=== PATIENT | female | born 1950 | race American Indian/Alaskan Native ===

== ENCOUNTER 2017-01-11 08:14 | Outpatient (CLI) | payer MEDICARE ==
--- NOTE | 2017-01-13 10:23 | Nuclear Medicine Report ---
Nuclear medicine three-phase bone scan History: Left knee pain status post left knee joint replacement in 2014 after traumatic injury. Findings: On the initial flow study, there is no evidence of increased flow to the left knee. On the second phase, there is minimal increased activity surrounding the prosthesis. The delayed images demonstrate mild generalized increased activity with no focal increased activity at the bone/prosthesis interface. Impression: No scintigraphic evidence of infection or loosening of the prosthesis.
== END 2017-01-11 08:15 | disposition home or self-care (01) ==
LOC: NM 08:14
PROVIDERS: ATTEND Orthopaedic Surgery
DX: M25.562 Pain in left knee (principal); S87.02XD Crushing injury of left knee, subsequent encounter; Z96.652 Presence of left artificial knee joint; X58.XXXD Exposure to other specified factors, subsequent encounter
CPT/HCPCS: 36415; 78315; 85652; 86140; A9503

== ENCOUNTER 2017-09-02 07:32 | Outpatient (CLI) | payer MEDICARE ==
[2017-09-02 08:08] LABS: Hematocrit 44.9 % (30.3-42.9); Hemoglobin 14.8 gm/dl (10.1-14.3); Mean Corpuscular HGB Conc 33 % (30-34); Mean Corpuscular Hemoglobin 32 pg (28-32); Mean Corpuscular Volume 97 fl (79-97); Platelet Count 360 K/mm3 (140-440); Red Blood Count 4.65 M/mm3 (3.65-5.03); Red Cell Distribution Width 14.9 % (13.2-15.2); White Blood Count 7.6 K/mm3 (4.5-11.0)
[2017-09-02 08:17] LABS: Bilirubin,Urine Negative (Negative)
[2017-09-02 08:18] LABS: Blood,Urine Negative (Negative); Ketones,Urine Negative (Negative)
[2017-09-02 08:19] LABS: Leukocyte Esterase,Urine Negative (Negative); Nitrite,Urine Negative (Negative); Urobilinogen,Urine < 2.0 mg/dL (<2.0)
[2017-09-02 08:21] LABS: Alanine Aminotransferase 7 units/L (7-56); Albumin 3.6 g/dL (3.9-5); Albumin/Globulin Ratio 1.1 %; Alkaline Phosphatase 115 units/L (35-129); Anion Gap 15 mmol/L; BUN/Creatinine Ratio 19; Blood Urea Nitrogen 17 mg/dL (7-17); Carbon Dioxide 28 mmol/L (22-30); Chloride 101.4 mmol/L (98-107); Glucose 87 mg/dL (65-100); Potassium 3.4 mmol/L (3.6-5.0); Sodium 141 mmol/L (137-145); Total Protein 6.9 g/dL (6.3-8.2)
--- NOTE | 2017-09-02 08:31 | XRay Report ---
ROUTINE CHEST, TWO VIEWS: HISTORY: Preoperative evaluation. Compared to 05/03/16. Normal heart size and pulmonary vascularity. The lungs are clear. No pleural effusion or pneumothorax. The aorta is ectatic and contains mild calcifications. The bony thorax is grossly intact. No significant change since the previous exam. IMPRESSION: No acute cardiopulmonary process.
== END 2017-09-02 07:33 | disposition home or self-care (01) ==
LOC: XRAY 07:32
PROVIDERS: ATTEND Internal Medicine
DX: Z01.818 Encounter for other preprocedural examination (principal); I70.0 Atherosclerosis of aorta; I77.819 Aortic ectasia, unspecified site; I10 Essential (primary) hypertension; I25.10 Atherosclerotic heart disease of native coronary artery without angina pectoris; J44.9 Chronic obstructive pulmonary disease, unspecified; D64.9 Anemia, unspecified
CPT/HCPCS: 36415; 71020; 80053; 81001; 85027

== ENCOUNTER 2019-09-19 09:30 | Emergency (ER) | payer MEDICARE ==
[2019-09-19 10:16] LABS: Basophils # (Auto) 0.1 K/mm3 (0.0-0.1); Basophils % (Auto) 0.7 % (0.0-1.8); Eosinophils # (Auto) 0.2 K/mm3 (0.0-0.4); Hematocrit 43.3 % (30.3-42.9); Hemoglobin 14.6 gm/dl (10.1-14.3); Lymphocytes # (Auto) 2.9 K/mm3 (1.2-5.4); Lymphocytes % (Auto) 37.9 % (13.4-35.0); Mean Corpuscular HGB Conc 34 % (30-34); Mean Corpuscular Volume 95 fl (79-97); Monocytes # (Auto) 0.5 K/mm3 (0.0-0.8); Monocytes % (Auto) 6.7 % (0.0-7.3); Platelet Count 354 K/mm3 (140-440); Red Blood Count 4.58 M/mm3 (3.65-5.03); Red Cell Distribution Width 16.1 % (13.2-15.2)
[2019-09-19 10:45] LABS: Alanine Aminotransferase 11 units/L (7-56); Albumin 3.6 g/dL (3.9-5); BUN/Creatinine Ratio 22; Blood Urea Nitrogen 20 mg/dL (7-17); Calcium 9.4 mg/dL (8.4-10.2); Hemolysis Index 9
[2019-09-19 10:46] LABS: Bilirubin,Urine NEG (Negative); Blood,Urine NEG (Negative); Color,Urine Amber (Yellow); Mucus,Urine 1+ /HPF
[2019-09-19] MEDS ORDERED: SODIUM CHLORIDE 0.9% 1000 ML 1,000 ML IV ONE (13:43)
[2019-09-19] MEDS ORDERED: HYDROmorphone 1 MG/1 ML INJ IV ONE (13:43)
[2019-09-19] MEDS ORDERED: ONDANSETRON 4 MG/2 ML INJ IV ONE (13:43)
--- NOTE | 2019-09-19 14:45 | Emergency Department Report ---
ED General Adult HPI - General Chief complaint: Abdominal Pain Stated complaint: DOC SENT Time Seen by Provider: 09/19/19 13:20 Source: patient Mode of arrival: Ambulatory Limitations: No Limitations - History of Present Illness Initial comments: The patient presents to the emergency department with a chief complaint of lower abdominal pain that started 2 nights ago. Patient states she has a history of colitis and last night the pain became so significant she went to see [facility] but left without being seen after waiting for approximately 8 hours per patient. Patient also complains of some nausea and vomiting but denies chest pain. -: Sudden Location: abdomen Radiation: non-radiation Severity scale (0 -10): 10 Quality: sharp Consistency: constant Improves with: none Worsens with: none Associated Symptoms: denies other symptoms Treatments Prior to Arrival: none - Related Data Home Medications Medication Instructions Recorded Confirmed Last Taken Amlodipine Besylate [Norvasc] 10 mg PO QDAY 09/19/19 09/19/19 Unknown Citalopram [celeXA] 40 mg PO QDAY 09/19/19 09/19/19 Unknown Clopidogrel [Plavix] 75 mg PO QDAY 09/19/19 09/19/19 Unknown Dexlansoprazole [Dexilant] 60 mg PO QDAY 09/19/19 09/19/19 Unknown Famotidine [Pepcid] 20 mg PO QDAY 09/19/19 09/19/19 Unknown Lisinopril/Hydrochlorothiazide 1 tab PO QDAY 09/19/19 09/19/19 Unknown [Zestoretic 20-12.5 mg] Omeprazole 40 mg PO QDAY 09/19/19 09/19/19 Unknown Ondansetron [Zofran Odt] 4 mg PO Q6HR 09/19/19 09/19/19 Unknown Pravastatin [Pravachol] 40 mg PO QHS 09/19/19 09/19/19 Unknown oxyCODONE /ACETAMINOPHEN [Percocet 1 tab PO Q12HR PRN 09/19/19 09/19/19 Unknown 5/325] Previous Rx's Medication Instructions Recorded Last Taken Type Dicyclomine [Bentyl] 10 mg PO QID PRN #20 capsule 09/19/19 Unknown Rx Ondansetron [Zofran Odt] 4 mg PO Q4HR PRN #20 tab.rapdis 09/19/19 Unknown Rx Allergies Allergy/AdvReac Type Severity Reaction Status Date / Time gabapentin Allergy Unknown Verified 09/19/19 13:16 ibuprofen Allergy Unknown Verified 09/19/19 13:16 meloxicam Allergy Unknown Verified 09/19/19 13:16 morphine Allergy Unknown Verified 09/19/19 13:16 sertraline [From Zoloft] Allergy Unknown Verified 09/19/19 13:16 tramadol Allergy Unknown Verified 09/19/19 13:16 ED Review of Systems ROS: Stated complaint: DOC SENT Other details as noted in HPI Comment: All other systems reviewed and negative Constitutional: denies: chills, fever Eyes: denies: eye pain, eye discharge, vision change ENT: denies: ear pain, throat pain Respiratory: denies: cough, shortness of breath, wheezing Cardiovascular: denies: chest pain, palpitations Endocrine: no symptoms reported Gastrointestinal: abdominal pain. denies: nausea, diarrhea Genitourinary: denies: urgency, dysuria, discharge Musculoskeletal: denies: back pain, joint swelling, arthralgia Skin: denies: rash, lesions Neurological: denies: headache, weakness, paresthesias Psychiatric: denies: anxiety, depression Hematological/Lymphatic: denies: easy bleeding, easy bruising ED Past Medical Hx - Past Medical History Hx Hypertension: Yes (SINCE 1973) Hx CVA: Yes Hx Heart Attack/AMI: No Hx GERD: Yes Hx Liver Disease: No Hx Renal Disease: Yes (gout) Hx Sickle Cell Disease: No Hx Arthritis: Yes Hx Headaches / Migraines: Yes (MIGRAINES) Hx Psychiatric Treatment: Yes (anxiety, depression) Hx COPD: Yes Hx Tuberculosis: Yes (POSITIVE SKIN TEST, NEG CXR) Hx HIV: No Additional medical history: colitis. aortic aneurysm - Surgical History Additional Surgical History: hemorrhoidectomy - Social History Smoking Status: Current Every Day Smoker - Medications Home Medications: Home Medications Medication Instructions Recorded Confirmed Last Taken Type Amlodipine Besylate [Norvasc] 10 mg PO QDAY 09/19/19 09/19/19 Unknown History Citalopram [celeXA] 40 mg PO QDAY 09/19/19 09/19/19 Unknown History Clopidogrel [Plavix] 75 mg PO QDAY 09/19/19 09/19/19 Unknown History Dexlansoprazole [Dexilant] 60 mg PO QDAY 09/19/19 09/19/19 Unknown History Dicyclomine [Bentyl] 10 mg PO QID PRN #20 capsule 09/19/19 Unknown Rx Famotidine [Pepcid] 20 mg PO QDAY 09/19/19 09/19/19 Unknown History Lisinopril/Hydrochlorothiazide 1 tab PO QDAY 09/19/19 09/19/19 Unknown History [Zestoretic 20-12.5 mg] Omeprazole 40 mg PO QDAY 09/19/19 09/19/19 Unknown History Ondansetron [Zofran Odt] 4 mg PO Q4HR PRN #20 tab.rapdis 09/19/19 Unknown Rx Ondansetron [Zofran Odt] 4 mg PO Q6HR 09/19/19 09/19/19 Unknown History Pravastatin [Pravachol] 40 mg PO QHS 09/19/19 09/19/19 Unknown History oxyCODONE /ACETAMINOPHEN [Percocet 1 tab PO Q12HR PRN 09/19/19 09/19/19 Unknown History 5/325] ED Physical Exam - General Limitations: No Limitations General appearance: alert, in no apparent distress - Head Head exam: Present: atraumatic, normocephalic - Eye Eye exam: Present: normal appearance, PERRL, EOMI - ENT ENT exam: Present: mucous membranes dry - Neck Neck exam: Present: normal inspection - Respiratory Respiratory exam: Present: normal lung sounds bilaterally. Absent: respiratory distress - Cardiovascular Cardiovascular Exam: Present: regular rate, normal rhythm. Absent: systolic murmur, diastolic murmur, rubs, gallop - GI/Abdominal GI/Abdominal exam: Present: soft, tenderness (TTP LLQ), normal bowel sounds. Absent: distended - Extremities Exam Extremities exam: Present: normal inspection - Back Exam Back exam: Present: normal inspection - Neurological Exam Neurological exam: Present: alert, oriented X3, CN II-XII intact. Absent: motor sensory deficit - Psychiatric Psychiatric exam: Present: normal affect, normal mood - Skin Skin exam: Present: warm, dry, intact, normal color. Absent: rash ED Course Vital Signs 09/19/19 09/19/19 09/19/19 09:36 13:18 13:20 Temperature 98.9 F 98.3 F Pulse Rate 72 72 Respiratory 18 22 19 Rate Blood Pressure 131/75 Blood Pressure 137/85 [Left] O2 Sat by Pulse 97 100 100 Oximetry ED Medical Decision Making - Lab Data Result diagrams: 09/19/19 09:41 09/19/19 09:45 Lab Results 09/19/19 09/19/19 09/19/19 Range/Units 09:41 09:45 13:46 WBC 7.6 (4.5-11.0) K/mm3 RBC 4.58 (3.65-5.03) M/mm3 Hgb 14.6 H (10.1-14.3) gm/dl Hct 43.3 H (30.3-42.9) % MCV 95 (79-97) fl MCH 32 (28-32) pg MCHC 34 (30-34) % RDW 16.1 H (13.2-15.2) % Plt Count 354 (140-440) K/mm3 Lymph % (Auto) 37.9 H (13.4-35.0) % [place] % (Auto) 6.7 (0.0-7.3) % Eos % (Auto) 3.0 (0.0-4.3) % Baso % (Auto) 0.7 (0.0-1.8) % Lymph # 2.9 (1.2-5.4) K/mm3 [place] # 0.5 (0.0-0.8) K/mm3 Eos # 0.2 (0.0-0.4) K/mm3 Baso # 0.1 (0.0-0.1) K/mm3 Seg Neutrophils % 51.7 (40.0-70.0) % Seg Neutrophils # 3.9 (1.8-7.7) K/mm3 Sodium 145 (137-145) mmol/L Potassium 3.7 (3.6-5.0) mmol/L Chloride 112.1 H (98-107) mmol/L Carbon Dioxide 19 L (22-30) mmol/L Anion Gap 18 mmol/L BUN 20 H (7-17) mg/dL Creatinine 0.9 (0.7-1.2) mg/dL Estimated GFR > 60 ml/min BUN/Creatinine Ratio 22 % Glucose 133 H (65-100) mg/dL Calcium 9.4 (8.4-10.2) mg/dL Total Bilirubin 0.50 (0.1-1.2) mg/dL AST 13 (5-40) units/L ALT 11 (7-56) units/L Alkaline Phosphatase 69 (35-129) units/L Total Protein 7.1 (6.3-8.2) g/dL Albumin 3.6 L (3.9-5) g/dL Albumin/Globulin Ratio 1.0 % Lipase 97 H (13-60) units/L Urine Color (Yellow) Urine Turbidity (Clear) Urine pH (5.0-7.0) Ur Specific [place] (1.003-1.030) Urine Protein (Negative) mg/dL Urine Glucose (UA) (Negative) mg/dL Urine Ketones (Negative) mg/dL Urine Blood (Negative) Urine Nitrite (Negative) Urine Bilirubin (Negative) Urine Urobilinogen (<2.0) mg/dL Ur Leukocyte Esterase (Negative) Urine WBC (Auto) (0.0-6.0) /HPF Urine RBC (Auto) (0.0-6.0) /HPF U Epithel Cells (Auto) (0-13.0) /HPF Urine Mucus /HPF 09/19/19 Range/Units Unknown WBC (4.5-11.0) K/mm3 RBC (3.65-5.03) M/mm3 Hgb (10.1-14.3) gm/dl Hct (30.3-42.9) % MCV (79-97) fl MCH (28-32) pg MCHC (30-34) % RDW (13.2-15.2) % Plt Count (140-440) K/mm3 Lymph % (Auto) (13.4-35.0) % [place] % (Auto) (0.0-7.3) % Eos % (Auto) (0.0-4.3) % Baso % (Auto) (0.0-1.8) % Lymph # (1.2-5.4) K/mm3 [place] # (0.0-0.8) K/mm3 Eos # (0.0-0.4) K/mm3 Baso # (0.0-0.1) K/mm3 Seg Neutrophils % (40.0-70.0) % Seg Neutrophils # (1.8-7.7) K/mm3 Sodium (137-145) mmol/L Potassium (3.6-5.0) mmol/L Chloride (98-107) mmol/L Carbon Dioxide (22-30) mmol/L Anion Gap mmol/L BUN (7-17) mg/dL Creatinine (0.7-1.2) mg/dL Estimated GFR ml/min BUN/Creatinine Ratio % Glucose (65-100) mg/dL Calcium (8.4-10.2) mg/dL Total Bilirubin (0.1-1.2) mg/dL AST (5-40) units/L ALT (7-56) units/L Alkaline Phosphatase (35-129) units/L Total Protein (6.3-8.2) g/dL Albumin (3.9-5) g/dL Albumin/Globulin Ratio % Lipase (13-60) units/L Urine Color [place] (Yellow) Urine Turbidity Clear (Clear) Urine pH 6.0 (5.0-7.0) Ur Specific [place] 1.027 (1.003-1.030) Urine Protein 30 mg/dl (Negative) mg/dL Urine Glucose (UA) Neg (Negative) mg/dL Urine Ketones Neg (Negative) mg/dL Urine Blood Neg (Negative) Urine Nitrite Neg (Negative) Urine Bilirubin Neg (Negative) Urine Urobilinogen 4.0 (<2.0) mg/dL Ur Leukocyte Esterase Neg (Negative) Urine WBC (Auto) 3.0 (0.0-6.0) /HPF Urine RBC (Auto) 1.0 (0.0-6.0) /HPF U Epithel Cells (Auto) 6.0 (0-13.0) /HPF Urine Mucus 1+ /HPF - Radiology Data Radiology results: report reviewed - Medical Decision Making Patient before me that the week of she had an EGD done and a colonoscopy by Dr. Aldrich with only 2 polyps being found. Discussed CT results with the patient So contacted the patient's physician was Dr. Carson the patient was discussed in detail including her CT imaging today Critical care attestation.: If time is entered above; I have spent that time in minutes in the direct care of this critically ill patient, excluding procedure time. ED Disposition Clinical Impression: Abdominal pain, Nausea & vomiting Disposition: TO HOME OR SELFCARE Is pt being admited?: No Does the pt Need Aspirin: No Condition: Stable Instructions: Acute Nausea and Vomiting (ED), Abdominal Pain (ED) Additional Instructions: Return if worse Prescriptions: Dicyclomine [Bentyl] 10 mg PO QID PRN #20 capsule PRN Reason: pain Ondansetron [Zofran Odt] 4 mg PO Q4HR PRN #20 tab.rapdis PRN Reason: Nausea Referrals: KEIRY CARSON MD [Primary Care Provider] - 3-5 Days Time of Disposition: 17:10
--- NOTE | 2019-09-19 15:32 | Cat Scan Report ---
CT ABDOMEN AND PELVIS WITH CONTRAST INDICATION: Left lower quadrant abdominal pain for 2 weeks with weakness. COMPARISON: CT abdomen and pelvis with contrast from 11/05/2014. TECHNIQUE: Axial, coronal and sagittal CT imaging of the abdomen and pelvis was performed after inje ction of 100 mL Omnipaque [address] scans at this location are performed using CT dose re duction for ALARA by means of automated exposure control. FINDINGS: LOWER CHEST: There is bibasilar atelectasis. The heart is mildly enlarged without a significant peric ardial effusion. The thoracic aorta is ectatic with mild to moderate atherosclerosis. LIVER: No significant abnormality. BILIARY: No significant abnormality. PANCREAS: No significant abnormality. SPLEEN: No significant abnormality. ADRENALS: No significant abnormality. KIDNEYS AND URETERS: There is age-appropriate bilateral renal cortical thinning. A simple appearing c yst along the right lower renal pole measures 1.5 cm. No additional significant abnormality. GI TRACT: There is mild thickening of the stomach, which may be related to underdistention. No additi onal significant abnormality of the stomach is seen. The small bowel and colon are unremarkable. The appendix is unremarkable. PERITONEUM: No free fluid. No free air. No fluid collection. LYMPH NODES: No significant adenopathy. VASCULATURE: The abdominal aorta is ectatic and mildly dilated infrarenally, measuring 3.3 x 3.0 cm. There is diffuse atherosclerosis. The visualized branches of the aorta are patent. URINARY BLADDER: No significant abnormality. REPRODUCTIVE ORGANS: No significant abnormality. ADDITIONAL FINDINGS: None. SKELETAL SYSTEM: No acute abnormality is seen. There are degenerative changes throughout the spine wi th prior multilevel lumbar laminectomies. Mild degenerative changes are also seen along the pelvis. IMPRESSION: 1. Mild thickening versus under distention of the stomach without an additional acute gastric abnorma lity or significant surrounding inflammation. 2. No other acute abnormality of the abdomen or pelvis is seen to explain the patient's pain. 3. Additional findings as above. Signer Name: Raymond Mcqueen MD Signed: 09/19/2019 3:28 PM Workstation Name: [id number]
[2019-09-19 18:01] VITALS: BP 139/106
== END 2019-09-19 18:01 | disposition home or self-care (01) ==
LOC: ED 09:30
DX: R10.30 Lower abdominal pain, unspecified (principal); R11.2 Nausea with vomiting, unspecified; I10 Essential (primary) hypertension; K21.9 Gastro-esophageal reflux disease without esophagitis; M19.90 Unspecified osteoarthritis, unspecified site; G43.909 Migraine, unspecified, not intractable, without status migrainosus; F17.200 Nicotine dependence, unspecified, uncomplicated; J44.9 Chronic obstructive pulmonary disease, unspecified
CPT/HCPCS: 36415; 74177; 80053; 81001; 83690; 85025; 96361; 96374; 96375; 99284; J1170; J2405; J7030; Q9967

== ENCOUNTER 2020-04-11 21:18 | Emergency (ER) | payer MEDICARE ==
--- NOTE | 2020-04-11 23:30 | Cat Scan Report ---
CT HEAD WITHOUT CONTRAST INDICATION : Altered mental status. History of fall. TECHNIQUE: Axial, coronal and sagittal CT imaging was performed from the skull apex through the skul l base without contrast. All CT scans at this location are performed using CT dose reduction for ALA RA by means of automated exposure control. COMPARISON: None available. FINDINGS: PARENCHYMA: No mass, midline shift, hemorrhage, extraaxial collection or acute territorial infarctio n. There is generalized atrophy with areas of decreased attenuation along the periventricular white matter that may represent chronic microvascular ischemic changes. VENTRICLES: Mildly enlarged secondary to atrophy. No acute abnormality. SOFT TISSUES: No significant abnormality of the included soft tissues/orbits. BONES: No acute osseous abnormality. SINUSES: No significant abnormality. ADDITIONAL FINDINGS: Moderate generalized intracranial atherosclerosis. IMPRESSION: 1. No acute intracranial abnormality. 2. Additional chronic changes as above. Signer Name: Raymond Mcqueen MD Signed: 04/11/2020 11:26 PM Workstation Name: [id number]
--- NOTE | 2020-04-11 23:35 | XRay Report ---
PELVIS 2 VIEWS INDICATION / CLINICAL INFORMATION: Pelvic pain. COMPARISON: CT abdomen and pelvis with contrast from 09/19/2019. FINDINGS: BONES and JOINT(S): No acute fracture or subluxation. Mild arthritis of the hips with similar mild to moderate lumbar spondylosis. SOFT TISSUES: No acute abnormality. Stable atherosclerosis along the pelvis. ADDITIONAL FINDINGS: None. IMPRESSION: 1. No acute findings. 2. Additional findings as above are unchanged compared to the prior CT from 09/19/2019. Signer Name: Raymond Mcqueen MD Signed: 04/11/2020 11:31 PM Workstation Name: [id number]
--- NOTE | 2020-04-11 23:36 | XRay Report ---
CHEST 1 VIEW 04/11/2020 10:26 PM INDICATION / CLINICAL INFORMATION: cough. COMPARISON: 2 views of the chest from 09/02/2017. FINDINGS: SUPPORT DEVICES: None. HEART / MEDIASTINUM: Stable. LUNGS / PLEURA: No significant pulmonary or pleural abnormality. No pneumothorax. ADDITIONAL FINDINGS: No significant additional findings. IMPRESSION: 1. No acute abnormality of the chest. Signer Name: Raymond Mcqueen MD Signed: 04/11/2020 11:32 PM Workstation Name: [id number]
[2020-04-12 00:18] LABS: Alanine Aminotransferase 17 units/L (7-56); Albumin 3.6 g/dL (3.9-5); BUN/Creatinine Ratio 18; Blood Urea Nitrogen 22 mg/dL (7-17); Calcium 9.5 mg/dL (8.4-10.2); Hemolysis Index 20
[2020-04-12 00:19] LABS: Basophils # (Auto) 0.1 K/mm3 (0.0-0.1); Basophils % (Auto) 0.7 % (0.0-1.8); Eosinophils # (Auto) 0.2 K/mm3 (0.0-0.4); Eosinophils % (Auto) 3.2 % (0.0-4.3); Hematocrit 43.5 % (30.3-42.9); Hemoglobin 14.3 gm/dl (10.1-14.3); Lymphocytes # (Auto) 2.5 K/mm3 (1.2-5.4); Lymphocytes % (Auto) 31.2 % (13.4-35.0); Mean Corpuscular HGB Conc 33 % (30-34); Mean Corpuscular Volume 93 fl (79-97); Monocytes # (Auto) 0.7 K/mm3 (0.0-0.8); Monocytes % (Auto) 8.7 % (0.0-7.3); Platelet Count 306 K/mm3 (140-440); Red Cell Distribution Width 14.7 % (13.2-15.2)
[2020-04-12 01:11] LABS: Amphetamine Screen,Urine PRESUMPTIVE NEGATIVE; Benzodiazepines Screen,Urine PRESUMPTIVE POSITIVE; Cannabinoid Screen,Urine PRESUMPTIVE NEGATIVE; Cocaine Screen,Urine PRESUMPTIVE NEGATIVE; Methadone Screen,Urine PRESUMPTIVE NEGATIVE; Opiate Screen,Urine PRESUMPTIVE NEGATIVE
[2020-04-12 01:20] LABS: Bilirubin,Urine NEG (Negative); Blood,Urine NEG (Negative); Color,Urine Yellow (Yellow); Protein,Urine <15 mg/dL mg/dL (Negative); Urobilinogen,Urine < 2.0 mg/dL (<2.0); WBC,Urine < 1.0 /HPF (0.0-6.0)
--- NOTE | 2020-04-12 01:48 | Emergency Department Report ---
ED General Adult HPI - General Chief complaint: Fall Stated complaint: FALL/RT SIDE PAIN/BLEEDING FROM EARS Time Seen by Provider: 04/11/20 21:58 Source: EMS Mode of arrival: Stretcher Limitations: No Limitations - History of Present Illness Initial comments: Patient presents to the emergency department via EMS for multiple falls over the last 3 months. Patient states today she fell but denies any injury. Patient states she did not hit her head. The patient denies passing out. Patient complains of feeling weak but denies having a fever, cough, chest pain. Patient has no other complaints. -: unknown Severity scale (0 -10): 0 Improves with: none Worsens with: none Associated Symptoms: denies other symptoms Treatments Prior to Arrival: none - Related Data Home Medications Medication Instructions Recorded Confirmed Last Taken Amlodipine Besylate [Norvasc] 10 mg PO QDAY 09/19/19 09/19/19 Unknown Citalopram [celeXA] 40 mg PO QDAY 09/19/19 09/19/19 Unknown Clopidogrel [Plavix] 75 mg PO QDAY 09/19/19 09/19/19 Unknown Dexlansoprazole [Dexilant] 60 mg PO QDAY 09/19/19 09/19/19 Unknown Famotidine [Pepcid] 20 mg PO QDAY 09/19/19 09/19/19 Unknown Lisinopril/Hydrochlorothiazide 1 tab PO QDAY 09/19/19 09/19/19 Unknown [Zestoretic 20-12.5 mg] Omeprazole 40 mg PO QDAY 09/19/19 09/19/19 Unknown Ondansetron [Zofran Odt] 4 mg PO Q6HR 09/19/19 09/19/19 Unknown Pravastatin [Pravachol] 40 mg PO QHS 09/19/19 09/19/19 Unknown oxyCODONE /ACETAMINOPHEN [Percocet 1 tab PO Q12HR PRN 09/19/19 09/19/19 Unknown 5/325] Previous Rx's Medication Instructions Recorded Last Taken Type Dicyclomine [Bentyl] 10 mg PO QID PRN #20 capsule 09/19/19 Unknown Rx Ondansetron [Zofran Odt] 4 mg PO Q4HR PRN #20 tab.rapdis 09/19/19 Unknown Rx Allergies Allergy/AdvReac Type Severity Reaction Status Date / Time gabapentin Allergy Unknown Verified 09/19/19 13:16 ibuprofen Allergy Unknown Verified 09/19/19 13:16 meloxicam Allergy Unknown Verified 09/19/19 13:16 morphine Allergy Unknown Verified 09/19/19 13:16 sertraline [From Zoloft] Allergy Unknown Verified 09/19/19 13:16 tramadol Allergy Unknown Verified 09/19/19 13:16 ED Review of Systems ROS: Stated complaint: FALL/RT SIDE PAIN/BLEEDING FROM EARS Other details as noted in HPI Constitutional: denies: chills, fever Eyes: denies: eye pain, eye discharge, vision change ENT: denies: ear pain, throat pain Respiratory: denies: cough, shortness of breath, wheezing Cardiovascular: denies: chest pain, palpitations Endocrine: no symptoms reported Gastrointestinal: denies: abdominal pain, nausea, diarrhea Genitourinary: denies: urgency, dysuria, discharge Musculoskeletal: denies: back pain, joint swelling, arthralgia Skin: denies: rash, lesions Neurological: denies: headache, weakness, paresthesias Psychiatric: denies: anxiety, depression Hematological/Lymphatic: denies: easy bleeding, easy bruising ED Past Medical Hx - Past Medical History Hx Hypertension: Yes (SINCE 1973) Hx CVA: Yes Hx Heart Attack/AMI: No Hx GERD: Yes Hx Liver Disease: No Hx Renal Disease: Yes (gout) Hx Sickle Cell Disease: No Hx Arthritis: Yes Hx Headaches / Migraines: Yes (MIGRAINES) Hx Psychiatric Treatment: Yes (anxiety, depression) Hx COPD: Yes Hx Tuberculosis: Yes (POSITIVE SKIN TEST, NEG CXR) Hx HIV: No Additional medical history: colitis. aortic aneurysm - Surgical History Additional Surgical History: hemorrhoidectomy - Social History Smoking Status: Current Every Day Smoker Substance Use Type: None - Medications Home Medications: Home Medications Medication Instructions Recorded Confirmed Last Taken Type Amlodipine Besylate [Norvasc] 10 mg PO QDAY 09/19/19 09/19/19 Unknown History Citalopram [celeXA] 40 mg PO QDAY 09/19/19 09/19/19 Unknown History Clopidogrel [Plavix] 75 mg PO QDAY 09/19/19 09/19/19 Unknown History Dexlansoprazole [Dexilant] 60 mg PO QDAY 09/19/19 09/19/19 Unknown History Dicyclomine [Bentyl] 10 mg PO QID PRN #20 capsule 09/19/19 Unknown Rx Famotidine [Pepcid] 20 mg PO QDAY 09/19/19 09/19/19 Unknown History Lisinopril/Hydrochlorothiazide 1 tab PO QDAY 09/19/19 09/19/19 Unknown History [Zestoretic 20-12.5 mg] Omeprazole 40 mg PO QDAY 09/19/19 09/19/19 Unknown History Ondansetron [Zofran Odt] 4 mg PO Q4HR PRN #20 tab.rapdis 09/19/19 Unknown Rx Ondansetron [Zofran Odt] 4 mg PO Q6HR 09/19/19 09/19/19 Unknown History Pravastatin [Pravachol] 40 mg PO QHS 09/19/19 09/19/19 Unknown History oxyCODONE /ACETAMINOPHEN [Percocet 1 tab PO Q12HR PRN 09/19/19 09/19/19 Unknown History 5/325] ED Physical Exam - General Limitations: No Limitations General appearance: alert, in no apparent distress - Head Head exam: Present: atraumatic, normocephalic - Eye Eye exam: Present: normal appearance, PERRL, EOMI - ENT ENT exam: Present: mucous membranes moist - Neck Neck exam: Present: normal inspection - Respiratory Respiratory exam: Present: normal lung sounds bilaterally. Absent: respiratory distress, wheezes - Cardiovascular Cardiovascular Exam: Present: regular rate, normal rhythm. Absent: systolic murmur, diastolic murmur, rubs, gallop - GI/Abdominal GI/Abdominal exam: Present: soft, normal bowel sounds. Absent: distended, tenderness - Extremities Exam Extremities exam: Present: normal inspection - Back Exam Back exam: Present: normal inspection - Neurological Exam Neurological exam: Present: alert, oriented X3, CN II-XII intact. Absent: motor sensory deficit - Psychiatric Psychiatric exam: Present: normal affect, normal mood - Skin Skin exam: Present: warm, dry, intact, normal color. Absent: rash ED Course Vital Signs 04/11/20 04/11/20 04/11/20 21:55 22:00 22:04 Temperature 98.0 F Pulse Rate 70 70 Respiratory 24 18 Rate Blood Pressure 123/85 123/85 133/89 O2 Sat by Pulse 70 L Oximetry 04/11/20 04/11/20 04/11/20 22:15 22:19 22:31 Temperature Pulse Rate 71 69 Respiratory 27 H 18 18 Rate Blood Pressure 133/89 O2 Sat by Pulse 93 94 Oximetry 04/11/20 04/11/20 04/11/20 22:45 23:00 23:23 Temperature Pulse Rate 68 67 66 Respiratory 24 24 Rate Blood Pressure 133/89 143/94 143/94 O2 Sat by Pulse 94 Oximetry 04/11/20 04/11/20 04/12/20 23:31 23:45 00:00 Temperature Pulse Rate 66 65 64 Respiratory 21 22 22 Rate Blood Pressure 143/94 143/94 140/91 O2 Sat by Pulse 92 94 96 Oximetry 04/12/20 04/12/20 04/12/20 00:15 00:31 00:45 Temperature Pulse Rate 63 Respiratory 22 24 Rate Blood Pressure 143/94 143/94 143/94 O2 Sat by Pulse 95 94 93 Oximetry 04/12/20 04/12/20 04/12/20 01:00 01:15 01:31 Temperature Pulse Rate Respiratory 17 20 24 Rate Blood Pressure 135/88 135/88 135/88 O2 Sat by Pulse 95 95 95 Oximetry 04/12/20 01:45 Temperature Pulse Rate Respiratory 22 Rate Blood Pressure 135/88 O2 Sat by Pulse 95 Oximetry ED Medical Decision Making - Lab Data Result diagrams: 04/11/20 23:30 04/11/20 23:30 Lab Results 04/11/20 04/11/20 04/11/20 Range/Units 23:30 23:30 23:30 WBC 7.9 (4.5-11.0) K/mm3 RBC 4.70 (3.65-5.03) M/mm3 Hgb 14.3 (10.1-14.3) gm/dl Hct 43.5 H (30.3-42.9) % MCV 93 (79-97) fl MCH 30 (28-32) pg MCHC 33 (30-34) % RDW 14.7 (13.2-15.2) % Plt Count 306 (140-440) K/mm3 Lymph % (Auto) 31.2 (13.4-35.0) % Whitman % (Auto) 8.7 H (0.0-7.3) % Eos % (Auto) 3.2 (0.0-4.3) % Baso % (Auto) 0.7 (0.0-1.8) % Lymph # 2.5 (1.2-5.4) K/mm3 Whitman # 0.7 (0.0-0.8) K/mm3 Eos # 0.2 (0.0-0.4) K/mm3 Baso # 0.1 (0.0-0.1) K/mm3 Seg Neutrophils % 56.2 (40.0-70.0) % Seg Neutrophils # 4.4 (1.8-7.7) K/mm3 Sodium 143 (137-145) mmol/L Potassium 3.8 (3.6-5.0) mmol/L Chloride 107.1 H (98-107) mmol/L Carbon Dioxide 24 (22-30) mmol/L Anion Gap 16 mmol/L BUN 22 H (7-17) mg/dL Creatinine 1.2 (0.6-1.2) mg/dL Estimated GFR 54 ml/min BUN/Creatinine Ratio 18 % Glucose 81 (65-100) mg/dL Calcium 9.5 (8.4-10.2) mg/dL Magnesium 2.30 (1.7-2.3) mg/dL Total Bilirubin 0.40 (0.1-1.2) mg/dL AST 31 (5-40) units/L ALT 17 (7-56) units/L Alkaline Phosphatase 96 (35-129) units/L Total Creatine Kinase 737 H (30-135) units/L Troponin T < 0.010 (0.00-0.029) ng/mL NT-Pro-B Natriuret Pep 189.7 197.2 (0-900) pg/mL Total Protein 7.2 (6.3-8.2) g/dL Albumin 3.6 L (3.9-5) g/dL Albumin/Globulin Ratio 1.0 % Urine Color (Yellow) Urine Turbidity (Clear) Urine pH (5.0-7.0) Ur Specific [place] (1.003-1.030) Urine Protein (Negative) mg/dL Urine Glucose (UA) (Negative) mg/dL Urine Ketones (Negative) mg/dL Urine Blood (Negative) Urine Nitrite (Negative) Urine Bilirubin (Negative) Urine Urobilinogen (<2.0) mg/dL Ur Leukocyte Esterase (Negative) Urine WBC (Auto) (0.0-6.0) /HPF Urine RBC (Auto) (0.0-6.0) /HPF U Epithel Cells (Auto) (0-13.0) /HPF Urine Opiates Screen Urine Methadone Screen Ur Barbiturates Screen Ur Phencyclidine Scrn Ur Amphetamines Screen U Benzodiazepines Scrn Urine Cocaine Screen U Marijuana (THC) Screen Drugs of Abuse Note 04/12/20 04/12/20 04/12/20 Range/Units 00:36 00:37 00:56 WBC (4.5-11.0) K/mm3 RBC (3.65-5.03) M/mm3 Hgb (10.1-14.3) gm/dl Hct (30.3-42.9) % MCV (79-97) fl MCH (28-32) pg MCHC (30-34) % RDW (13.2-15.2) % Plt Count (140-440) K/mm3 Lymph % (Auto) (13.4-35.0) % Whitman % (Auto) (0.0-7.3) % Eos % (Auto) (0.0-4.3) % Baso % (Auto) (0.0-1.8) % Lymph # (1.2-5.4) K/mm3 Whitman # (0.0-0.8) K/mm3 Eos # (0.0-0.4) K/mm3 Baso # (0.0-0.1) K/mm3 Seg Neutrophils % (40.0-70.0) % Seg Neutrophils # (1.8-7.7) K/mm3 Sodium (137-145) mmol/L Potassium (3.6-5.0) mmol/L Chloride (98-107) mmol/L Carbon Dioxide (22-30) mmol/L Anion Gap mmol/L BUN (7-17) mg/dL Creatinine (0.6-1.2) mg/dL Estimated GFR ml/min BUN/Creatinine Ratio % Glucose (65-100) mg/dL Calcium (8.4-10.2) mg/dL Magnesium (1.7-2.3) mg/dL Total Bilirubin (0.1-1.2) mg/dL AST (5-40) units/L ALT (7-56) units/L Alkaline Phosphatase (35-129) units/L Total Creatine Kinase (30-135) units/L Troponin T < 0.010 (0.00-0.029) ng/mL NT-Pro-B Natriuret Pep (0-900) pg/mL Total Protein (6.3-8.2) g/dL Albumin (3.9-5) g/dL Albumin/Globulin Ratio % Urine Color Yellow (Yellow) Urine Turbidity Clear (Clear) Urine pH 6.0 (5.0-7.0) Ur Specific [place] 1.016 (1.003-1.030) Urine Protein <15 mg/dl (Negative) mg/dL Urine Glucose (UA) Neg (Negative) mg/dL Urine Ketones Neg (Negative) mg/dL Urine Blood Neg (Negative) Urine Nitrite Neg (Negative) Urine Bilirubin Neg (Negative) Urine Urobilinogen < 2.0 (<2.0) mg/dL Ur Leukocyte Esterase Neg (Negative) Urine WBC (Auto) < 1.0 (0.0-6.0) /HPF Urine RBC (Auto) 1.0 (0.0-6.0) /HPF U Epithel Cells (Auto) 2.0 (0-13.0) /HPF Urine Opiates Screen Presumptive negative Urine Methadone Screen Presumptive negative Ur Barbiturates Screen Presumptive negative Ur Phencyclidine Scrn Presumptive negative Ur Amphetamines Screen Presumptive negative U Benzodiazepines Scrn Presumptive positive Urine Cocaine Screen Presumptive negative U Marijuana (THC) Screen Presumptive negative Drugs of Abuse Note Disclamer - EKG Data -: EKG Interpreted by Nv EKG shows normal: sinus rhythm Rate: normal - EKG Data Interpretation: other (Left bundle branch block) - Radiology Data Radiology results: report reviewed - Medical Decision Making Results reviewed including UDS, urinalysis, imaging, laboratory values Discussed results with patient Critical care attestation.: If time is entered above; I have spent that time in minutes in the direct care of this critically ill patient, excluding procedure time. ED Disposition Clinical Impression: Fatigue, Falls Disposition: DC-01 TO HOME OR SELFCARE Is pt being admited?: No Does the pt Need Aspirin: No Condition: Stable Instructions: Fatigue (ED), Fall Prevention (ED) Additional Instructions: return if worse Referrals: [facility] [Provider Group] - 3-5 Days [facility] [Provider Group] - 3-5 Days Time of Disposition: 01:58
[2020-04-12 02:45] VITALS: BP 133/78
== END 2020-04-12 02:45 | disposition home or self-care (01) ==
LOC: ED 21:18
DX: R53.83 Other fatigue (principal); R53.1 Weakness; I10 Essential (primary) hypertension; K21.9 Gastro-esophageal reflux disease without esophagitis; M19.91 Primary osteoarthritis, unspecified site; G43.909 Migraine, unspecified, not intractable, without status migrainosus; F32.9 Major depressive disorder, single episode, unspecified; J44.9 Chronic obstructive pulmonary disease, unspecified; F17.200 Nicotine dependence, unspecified, uncomplicated; Z86.11 Personal history of tuberculosis; Z86.73 Personal history of transient ischemic attack (TIA), and cerebral infarction without residual deficits; Z87.448 Personal history of other diseases of urinary system; Z90.89 Acquired absence of other organs; Z79.899 Other long term (current) drug therapy; Z88.8 Allergy status to other drugs, medicaments and biological substances
CPT/HCPCS: 36415; 70450; 71045; 72170; 80053; 80307; 81001; 82550; 83735; 83880; 84484; 85025; 93005

== ENCOUNTER 2020-10-22 11:10 | Outpatient (CLI) | payer MEDICARE ==
[2020-10-22 12:11] LABS: Chol/HDL Ratio 2.78 %
== END 2020-10-22 11:11 | disposition home or self-care (01) ==
LOC: LAB 11:10
PROVIDERS: ATTEND Internal Medicine
DX: J44.9 Chronic obstructive pulmonary disease, unspecified (principal); K21.9 Gastro-esophageal reflux disease without esophagitis; J32.9 Chronic sinusitis, unspecified; I63.9 Cerebral infarction, unspecified; I10 Essential (primary) hypertension
CPT/HCPCS: 36415; 80061; 82785; 84436; 84443; 85379

== ENCOUNTER 2020-11-06 10:04 | Outpatient (CLI) | payer MEDICARE ==
--- NOTE | 2020-11-06 11:27 | Vascular Lab Report ---
DUPLEX DOPPLER LOWER EXTREMITY VEINS, BILATERAL INDICATION / CLINICAL INFORMATION: Leg pain and swelling. TECHNIQUE: Duplex doppler imaging was performed through the veins of both lower extremities using venous jeny raymond and other maneuvers. COMPARISON: None available. FINDINGS: RIGHT COMMON FEMORAL VEIN: Negative. RIGHT FEMORAL VEIN: Negative. RIGHT POPLITEAL VEIN: Negative. RIGHT CALF VEINS: Negative. LEFT COMMON FEMORAL VEIN: Negative. LEFT FEMORAL VEIN: Negative. LEFT POPLITEAL VEIN: Negative. LEFT CALF VEINS: Negative. ADDITIONAL FINDINGS: None. IMPRESSION: 1. No sonographic evidence for DVT in either lower extremity. Signer Name: Rasta Leach MD Signed: 11/06/2020 11:22 AM Workstation Name: [id number]
[2020-11-06 11:57] LABS: Blood Urea Nitrogen 15 mg/dL (7-17)
--- NOTE | 2020-11-06 12:02 | XRay Report ---
CHEST 2 VIEWS INDICATION / CLINICAL INFORMATION: CHRONIC OBSTRUCTION PULMONARY. COMPARISON: 04/11/2020 FINDINGS: SUPPORT DEVICES: None. HEART / MEDIASTINUM: No significant abnormality. LUNGS / PLEURA: Chronic interstitial disease. No pneumothorax. ADDITIONAL FINDINGS: No significant additional findings. IMPRESSION: Chronic interstitial disease unchanged from 04/11/2020. No acute disease or interval change from the p rior examination Signer Name: Nicanor Romero MD FACR Signed: 11/06/2020 11:57 AM Workstation Name: [id number]
--- NOTE | 2020-11-06 13:38 | Cat Scan Report ---
CTA chest with contrast INDICATION : MAIN. Acute cough TECHNIQUE: Axial imaging performed through the chest, with contrast bolus timing set to maximize opa cification of the pulmonary arteries. 3-plane MIP reformatted images were obtained. All CT scans at this location are performed using CT dose reduction for ALARA by means of automated exposure control. 100 mL of intravenous contrast administered. COMPARISON: CTA chest from 11/05/2014 FINDINGS: Bolus: Contrast bolus timing is adequate. PTE: No filling defect is present to suggest PTE. Mediastinum: Moderate atherosclerotic disease in the thoracic aorta and coronary arteries. Normal he art size. No pathologic mediastinal adenopathy. Lungs: Severe emphysema with mild dependent atelectasis notably in the right lung. Upper abdomen: Limited imaging of the upper abdomen shows nothing acute. Bones: Degenerative changes in the spine with nothing acute. IMPRESSION: 1. Negative for PTE. 2. Severe emphysema. Signer Name: Jameson Fregoso MD Signed: 11/06/2020 1:33 PM Workstation Name: [id number]
== END 2020-11-06 10:05 | disposition home or self-care (01) ==
LOC: CT 10:04
PROVIDERS: ATTEND Internal Medicine
DX: J43.9 Emphysema, unspecified (principal); I63.9 Cerebral infarction, unspecified; J32.9 Chronic sinusitis, unspecified; J98.11 Atelectasis; I70.0 Atherosclerosis of aorta; K21.9 Gastro-esophageal reflux disease without esophagitis; I25.10 Atherosclerotic heart disease of native coronary artery without angina pectoris; M47.814 Spondylosis without myelopathy or radiculopathy, thoracic region
CPT/HCPCS: 36415; 71046; 71275; 82565; 84520; 93970; Q9967

== ENCOUNTER 2021-02-11 11:36 | Outpatient (CLI) | payer MEDICARE ==
--- NOTE | 2021-02-11 12:32 | Ultrasound Report ---
ULTRASOUND ABDOMEN LIMITED HISTORY: Abdominal pain, left lower quadrant abdominal pain TECHNIQUE: Grayscale ultrasound with color Doppler imaging. FINDINGS: Targeted ultrasound was performed in the left lower quadrant at the site of pain. The image s demonstrate no evidence for mass, adenopathy or fluid collection. Normal soft tissues and bowel loo ps are suggested in the left lower quadrant. IMPRESSION: No abnormality identified. Signer Name: Narinder Cee Jr, MD Signed: 02/11/2021 12:27 PM Workstation Name: [id number]
== END 2021-02-11 11:37 | disposition home or self-care (01) ==
LOC: US 11:36
PROVIDERS: ATTEND Internal Medicine
DX: R10.31 Right lower quadrant pain (principal)
CPT/HCPCS: 76705

== ENCOUNTER 2022-06-08 10:25 | Outpatient (CLI) | payer MEDICARE ==
[2022-06-08 11:06] LABS: Hemoglobin 12.7 gm/dl (10.1-14.3); Mean Corpuscular HGB Conc 34 % (30-34); Mean Corpuscular Volume 98 fl (79-97); Platelet Count 239 K/mm3 (140-440); Red Cell Distribution Width 14.9 % (13.2-15.2)
[2022-06-08 11:17] LABS: Albumin 3.9 g/dL (3.9-5); Calcium 9.4 mg/dL (8.4-10.2)
--- NOTE | 2022-06-08 13:44 | Cat Scan Report ---
CT CHEST WITH CONTRAST INDICATION / CLINICAL INFORMATION: I71.9 Aortic aneurysm of unspecified site without mention of rup. TECHNIQUE: Axial CT images were obtained through the chest after IV contrast. All CT scans at this [facility] are performed using CT dose reduction for ALARA by means of automated exposure control. COMPARISON: CTA chest on 11/06/2020 FINDINGS: HEART: No significant abnormality. CORONARY ARTERY CALCIFICATION: Present -- Severe. THORACIC AORTA: Mild atherosclerotic calcification without acute abnormality. Aortic diameter appears normal throughout the chest. MEDIASTINUM / BROOK: No significant abnormality. PLEURA: No pleural effusion. No pneumothorax. LUNGS: No acute air space or interstitial disease. Unchanged advanced emphysema. ADDITIONAL FINDINGS: None. UPPER ABDOMEN: No significant abnormality. SKELETAL SYSTEM: No significant abnormality. IMPRESSION: 1. No aortic aneurysm identified on this exam. Signer Name: Rasta Leach MD Signed: 06/08/2022 1:40 PM Workstation Name: [id number]
== END 2022-06-08 10:26 | disposition home or self-care (01) ==
LOC: CT 10:25
PROVIDERS: ATTEND Internal Medicine
DX: I70.0 Atherosclerosis of aorta (principal); I71.9 Aortic aneurysm of unspecified site, without rupture
CPT/HCPCS: 36415; 71260; 80053; 85027; Q9967